=== PATIENT | male | born 1940 | race Caucasian/White ===

== ENCOUNTER 2017-01-01 08:04 | Day surgery (SDC) | payer MEDICARE, OTHER ==
[~2017-01-01] VITALS: Ht 167.6 cm; Wt 82.7 kg
[~2017-01-01 08:04] MED LIST: ACETAMINOPHEN 500 MG TAB (TYLENOL) PO PRN; ACETYLCHOLINE CHLORIDE 20 MG/2 ML KIT IO ONE; BSS OPHTHALMIC IRRIGATION SOLUTION 15 ML BTL ONE; CHONDROITIN/HYALURONATE (DISCOVISC) 1 ML SYR IO ONE; EPINEPHrine 1MG/ML (1:1000) 1 ML AMPUL (ADRENALIN) ONE; LIDOCAINE PF 1% (XYLOCAINE) 30 ML VIAL INJ ONE; PHENYLEPHRINE/KETOROLAC 4 ML VIAL IO ONE; POVIDONE-IODINE 5% OPHTHALMIC SOLUTION (BETADINE PREP) 30 ML BTL ONE; SODIUM CHLORIDE FLUSH 3 ML SYR IV PRN; TETRACAINE 0.5% OPHTHALMIC SOLUTION 4 ML BTL ONE; VANCOMYCIN 500 MG VIAL ONE; diphenhydrAMINE 50 MG/ML INJ (BENADRYL) IV PRN
[2017-01-01 08:14] VITALS: BP 141/92
[2017-01-01] MEDS: LIDOCAINE 3.5% OPHTH GEL (AKTEN) 1 ML BTL OS SCH ×4 (08:32→09:07)
[2017-01-01] MEDS: HOME MEDICATION OS SCH ×3 (08:46→09:07)
[2017-01-01] MEDS: CATARACT PRE-OP EYE DROPS 0.5ML SYRINGE OS SCH ×3 (08:46→09:07)
[2017-01-01] MEDS ORDERED: MIDAZOLAM 2 MG/2 ML (VERSED) VIAL ONE (09:37)
[2017-01-01] MEDS ORDERED: CHONDROITIN/HYALURONATE (VISCOAT) 0.5 ML SYR IO ONE (09:43)
[2017-01-01] MEDS ORDERED: ACETYLCHOLINE CHLORIDE 20 MG/2 ML KIT IO ONE (09:44)
[2017-01-01] MEDS ORDERED: SODIUM CHLORIDE VIAL (PF) 10 ML IV ONE (09:52)
[2017-01-01] MEDS ORDERED: BSS OPHTHALMIC IRRIGATION SOLUTION 15 ML BTL ONE (10:01)
[2017-01-01] MEDS ORDERED: ALFENTANIL 1,000 MCG/2 ML AMP IV ONE (10:05)
[2017-01-01 10:38] VITALS: BP 152/89
--- NOTE | 2017-01-01 10:50 | NUR ---
VIGAMOX GIVEN TO AISSATOU. PLACED IN BOX INSIDE OF BAG FROM DR. FITZPATRICK'S OFFICE.
== END 2017-01-01 11:05 | disposition home or self-care (01) ==
LOC: ASC 08:04
PROVIDERS: ATTEND Ophthalmology
DX: H25.12 Age-related nuclear cataract, left eye (principal); E11.9 Type 2 diabetes mellitus without complications; E03.9 Hypothyroidism, unspecified; E78.5 Hyperlipidemia, unspecified; Z79.4 Long term (current) use of insulin
CPT/HCPCS: 66982; 93005; A9270; C9447; J0171; J2001; J2250; J3370; J7050; V2632

== ENCOUNTER 2017-01-15 06:58 | Day surgery (SDC) | payer MEDICARE, OTHER ==
[~2017-01-15] VITALS: Ht 167.6 cm; Wt 83.6 kg
[~2017-01-15 06:58] MED LIST changes: -ACETYLCHOLINE CHLORIDE 20 MG/2 ML KIT IO ONE
[2017-01-15 07:10] VITALS: BP 122/84
[2017-01-15] MEDS: LIDOCAINE 3.5% OPHTH GEL (AKTEN) 1 ML BTL OD SCH ×4 (07:23→07:58)
[2017-01-15] MEDS: HOME MEDICATION OD SCH ×3 (07:32→07:58)
[2017-01-15] MEDS: CATARACT PRE-OP EYE DROPS 0.5ML SYRINGE OD SCH ×3 (07:32→07:58)
[2017-01-15] MEDS ORDERED: MIDAZOLAM 2 MG/2 ML (VERSED) VIAL ONE (08:00)
[2017-01-15] MEDS ORDERED: CHONDROITIN/HYALURONATE (VISCOAT) 0.5 ML SYR IO ONE (08:29)
[2017-01-15] MEDS ORDERED: ACETYLCHOLINE CHLORIDE 20 MG/2 ML KIT IO ONE (08:29)
[2017-01-15 09:24] VITALS: BP 140/91
== END 2017-01-15 09:39 | disposition home or self-care (01) ==
LOC: ASC 06:58
PROVIDERS: ATTEND Ophthalmology
DX: H25.11 Age-related nuclear cataract, right eye (principal); H57.03 Miosis; E11.9 Type 2 diabetes mellitus without complications; E03.9 Hypothyroidism, unspecified; I10 Essential (primary) hypertension; I25.10 Atherosclerotic heart disease of native coronary artery without angina pectoris; N40.0 Benign prostatic hyperplasia without lower urinary tract symptoms; Z79.4 Long term (current) use of insulin
CPT/HCPCS: 66982; A9270; C9447; J0171; J2001; J2250; J3370; V2632

== ENCOUNTER → 2017-03-05 | Outpatient (CLI) | payer MEDICARE, OTHER ==
[~2017-03-05] MED LIST changes: -ACETAMINOPHEN 500 MG TAB (TYLENOL) PO PRN; +ASCO500T20 PO; +ASPI81TA55 PO; +ATOR20TA PO; -BSS OPHTHALMIC IRRIGATION SOLUTION 15 ML BTL ONE; +CHOL100048 PO; -CHONDROITIN/HYALURONATE (DISCOVISC) 1 ML SYR IO ONE; -EPINEPHrine 1MG/ML (1:1000) 1 ML AMPUL (ADRENALIN) ONE; +FNST5T PO; +INSU100V SQ; +INSU100V32 SQ; +INSU300I SQ; -LIDOCAINE PF 1% (XYLOCAINE) 30 ML VIAL INJ ONE; +LVT.05T PO; -PHENYLEPHRINE/KETOROLAC 4 ML VIAL IO ONE; -POVIDONE-IODINE 5% OPHTHALMIC SOLUTION (BETADINE PREP) 30 ML BTL ONE; -SODIUM CHLORIDE FLUSH 3 ML SYR IV PRN; -TETRACAINE 0.5% OPHTHALMIC SOLUTION 4 ML BTL ONE; -VANCOMYCIN 500 MG VIAL ONE; -diphenhydrAMINE 50 MG/ML INJ (BENADRYL) IV PRN
[2017-03-05 10:45] LABS: BASOPHILS % (AUTO) 0 % (0-2); EOSINOPHILS % (AUTO) 0 % (0-4); MEAN CORPUSCULAR HEMOGLOBIN 33.2 PG (26.0-34.0); MEAN CORPUSCULAR HGB CONC 33.2 g/dL (31.0-37.0); MEAN CORPUSCULAR VOLUME 100 FL (80-100); MEAN PLATELET VOLUME 9.5 FL (6.0-9.5); MONOCYTES # (AUTO) 0.6 X10^3; MONOCYTES % (AUTO) 6 % (3-11); NEUTROPHILS # (AUTO) 9.8 X10^3; NEUTROPHILS % (AUTO) 85 % (51-67); PLATELET COUNT 241 10^3uL (150-450); WHITE BLOOD COUNT 11.55 10^3uL (4.0-11.0)
[2017-03-05 10:46] LABS: BILIRUBIN,URINE Negative (Negative); CLARITY,URINE Clear; COLOR,URINE Yellow; GLUCOSE, URINE (UA) 1+ (Negative); LEUKOCYTE ESTERASE ,URINE Negative (Negative); UROBILINOGEN,URINE 0.2 mg/dL (0.2-1.0)
[2017-03-05 11:03] LABS: ALBUMIN 4.1 g/dL (3.4-5.0); ALKALINE PHOSPHATASE 118 U/L (38-126); ANION GAP 12.7 MEQ/L (3-15); BUN/CREATININE RATIO 27 (10-20); CALCULATED IONIZED CALCIUM 4.9 mg/dL (3.8-4.6); TOTAL PROTEIN 6.7 g/dL (6.4-8.5)
--- NOTE | 2017-03-05 13:26 | Diagnostic Imaging Report ---
INDICATION: Chest pain, shortness of breath. COMPARISON: 04/17/2014. FINDINGS: The sternal wires are midline. The heart size and vascularity are within normal limits. The lungs are clear. No effusion or pneumothorax. IMPRESSION: No acute appearing abnormality. Dictated by: Dictated on workstation # [id number]
== END ==
LOC: LAB 10:26
PROVIDERS: ATTEND Family Medicine
DX: R07.2 Precordial pain (principal); E10.42 Type 1 diabetes mellitus with diabetic polyneuropathy; E03.8 Other specified hypothyroidism; M10.9 Gout, unspecified
CPT/HCPCS: 36415; 71020; 80053; 80061; 81003; 83036; 83880; 84439; 84443; 84550; 85025; 86140